=== PATIENT | male | born 1990 | race Caucasian/White ===

== ENCOUNTER 2018-07-28 19:13 | Inpatient (IN) | payer MEDICAID ==
[~2018-07-28] VITALS: Ht 175.3 cm; Wt 64.4 kg
[2018-07-28 19:17] VITALS: BP 128/60
--- NOTE | 2018-07-28 19:22 | NUR ---
PATIENT AMBULATED TO ER BED 8.
--- NOTE | 2018-07-28 19:30 | NUR ---
28/M CAME IN ED, C/O 06/20 LLQ PAIN, RADIATING TO BL LATATERAL SIDES, X1 WEEK. PT REPORTS FEELING BLOATED AND CONSTIPATED AND SLIGHT NAUSEA. PT ALSO REPORTS RECTAL/ANAL PAIN WHEN APPEMPTING TO HAVE BM. LBM THIS AM VERY LITTLE. PT DENIES FEVER, VOMITING, CP, OR SOB. LUNG SOUNDS CLEAR BL. BS ACTIVE X4, ABD SOFT ROUND TENDER TO LLQ. PT REPORTS TAKING LAXATIVE AND COLON CLEANSE WITHOUT RELIEF. DENIES MED HX.
--- NOTE | 2018-07-28 20:44 | NUR ---
ER AT BEDSIDE
[2018-07-28] MEDS ORDERED: NACL 0.9% 1,000 ML IV SCH (20:56)
--- NOTE | 2018-07-28 20:56 | NUR ---
PT RESTING IN BED, RR EVEN AND UNLABORED. VSS, PT REPORST 7/10 ABD PAIN. ALL NEEDS MET.
[2018-07-28] MEDS ORDERED: ALUMINUM HYD/MAG/SIMETHICONE 30 ML, DICYCLOMINE HCL LIQUID 20 MG, LIDOCAINE VISCOUS 2% ... PO ONE ×3 (21:00)
[2018-07-28] MEDS ORDERED: BISACODYL 5 MG TABEC PO ONE (21:00)
[2018-07-28 21:17] LABS: BASOPHILS % (AUTO) 0.4 % (0.0-2.0); EOSINOPHILS # (AUTO) 0.3 K/uL (0-0.4); HEMATOCRIT 47.3 % (36-52); HEMOGLOBIN 15.9 g/dL (12.0-18.0); LYMPHOCYTES # (AUTO) 2.5 K/uL (2.0-11.5); LYMPHOCYTES % (AUTO) 28.8 % (20.5-51.1); MEAN CORPUSCULAR HEMOGLOBIN 32 pg (27-31); MEAN CORPUSCULAR HGB CONC 34 g/dL (33-37); MEAN CORPUSCULAR VOLUME 95.1 fL (80-94); MONOCYTES # (AUTO) 0.7 K/uL (0.8-1.0); MONOCYTES % (AUTO) 7.6 % (1.7-9.3); NEUTROPHILS # (AUTO) 5.3 K/uL (1.8-7.7); NEUTROPHILS % (AUTO) 60.2 % (42.2-75.2); PLATELET COUNT (AUTO) 159 K/uL (140-450); RED BLOOD CELL COUNT(AUTO) 4.98 MIL/uL (4.20-6.10); WHITE BLOOD COUNT (AUTO) 8.8 K/uL (4.8-10.8)
[2018-07-28 21:25] LABS: ANION GAP 13.6 (8-16); CARBON DIOXIDE 30.5 mmol/L (21-32); POTASSIUM 4.1 mmol/L (3.5-5.1)
[2018-07-28 21:28] LABS: APPEARANCE,URINE CLEAR (CLEAR); BILIRUBIN,URINE NEGATIVE (NEGATIVE); BLOOD, URINE NEGATIVE (NEGATIVE); COLOR,URINE YELLOW (YELLOW); LEUKOCYTE ESTERASE ,URINE NEGATIVE (NEGATIVE); NITRITE, URINE NEGATIVE (NEGATIVE); PH,URINE 6.5 (5.0-9.0); UGLUCOSE NEGATIVE (NEGATIVE)
--- NOTE | 2018-07-28 21:30 | NUR ---
Ghulam dey in ED - 07/28/18 at 2232 by YOSHI PT REFUSING MIRALAX AT THIS TIME
[2018-07-28 21:31] LABS: ALBUMIN 4.1 g/dL (3.4-5.0); TOTAL BILIRUBIN 0.2 mg/dL (0.0-1.0)
--- NOTE | 2018-07-28 21:35 | NUR ---
DULCOLAX ONLY AVAILABLE IN SUPPOSITORY PER HOUSE SUP. ER MADE AWARE. DULCOLAX CANCELLED, MIRALAX ORDERED
[2018-07-28] MEDS: POLYETHYLENE GLYCOL 17 GM/PKT PO ONE ×2 (21:40→22:31)
--- NOTE | 2018-07-28 21:40 | NUR ---
PT REFUSING MIRALAX AT THIS TIME
--- NOTE | 2018-07-28 22:08 | NUR ---
PT TAKEN BY CT
--- NOTE | 2018-07-28 22:18 | NUR ---
PT BACK FROM CT
--- NOTE | 2018-07-28 22:37 | NUR ---
PT RESTING IN BED, RR EVEN AND UNLABORED. VSS, PT REPORTS 3/10 ABD PAIN. ALL NEEDS MET.
[2018-07-28] MEDS ORDERED: NACL 0.9% 1,000 ML IV ONE (23:25)
[2018-07-28] MEDS ORDERED: MORPHINE SULFATE 2 MG/ML SYR IVP ONE (23:25)
[2018-07-28] MEDS ORDERED: LORazepam 2 MG/ML VIAL IM/IVP PRN (23:35)
[2018-07-28] MEDS ORDERED: MORPHINE SULFATE 2 MG/ML SYR IVP PRN (23:35)
[2018-07-28] MEDS ORDERED: DOCUSATE SODIUM 100 MG GELCAP PO PRN (23:35)
[2018-07-28] MEDS ORDERED: ONDANSETRON 4 MG/2 ML VIAL IM/IVP PRN (23:35)
[2018-07-28] MEDS ORDERED: ZOLPIDEM 5 MG TAB PO PRN (23:35)
[2018-07-28] MEDS ORDERED: HYDROcodone/APAP 5/325 MG 1 TAB TAB PO PRN (23:35)
[2018-07-28] MEDS: PIPERACILLIN/TAZOBACTAM 3.375 GM in DEXTROSE 5% 50 ML IV ONE ×2 (23:36→23:55)
[2018-07-28] MEDS ORDERED: PIPERACILLIN/TAZOBACTAM 3.375 GM VIAL IV ONE (23:38)
--- NOTE | 2018-07-28 23:52 | NUR ---
DR LONGO AND DR GARCIA AT BEDSIDE. PT REPORTED CONCERN ABOUT HAVING SURGERY BECAUSE HE IS SUPPOSED TO HAVE HIS KIDS OVER THE WEEKEND. MD EXPLAINED RISKS OF LEAVING AMA, PT AGREED TO STAY IN THE HOSPITAL. SPOKE WITH DR QING MD STATED THAT BLOOD CULTURES ARE NOT NEEDED BEFORE ZOSYN ABX.
[2018-07-29 00:01] LABS: BARBITURATE, URINE NEG. ng/ml (NEG <=200); BENZODIAZEPINE, URINE NEG. ng/mL (NEG <=200); CANNABINOID, URINE NEG. ng/mL (NEG <=50); COCAINE, URINE NEG. ng/mL (NEG <=300); OPIATE, URINE NEG. ng/mL (NEG <=2000); PHENCYCLIDINE SCREEN,URINE NEG. ng/mL (NEG <=25)
[2018-07-29 00:10] VITALS: BP 117/66
--- NOTE | 2018-07-29 00:10 | NUR ---
RECEIVED REPORT FROM DAYSHIFT NURSE AT BEDSIDE FOR CONTINUITY OF CARE. PT [id number]. PT IV NOTED LAC 20G NS WIDE OPEN. NO SOB NO S/S OF DISTRESS ON RA. BED LOWERED PT AMBULATORY. PT ORIENTED TO ROOM WILL CONTINUE TO MONITOR.
[2018-07-29 00:11] LABS: MAGNESIUM 2.2 mg/dL (1.8-2.4); PHOSPHORUS 4.2 mg/dL (2.5-4.9); THYROID STIMULATING HORMONE 0.93 uIU/mL (0.34-3.74)
--- NOTE | 2018-07-29 00:11 | NUR ---
Patient will be admitted to care of DR SALVADOR. Admited to [facility]. Will go to [facility]. Belongings list completed. Report to SANAM DUMONT.
[2018-07-29] MEDS ORDERED: BISACODYL 10 MG SUPP RC SCH (01:00)
[2018-07-29] MEDS ORDERED: SIMETHICONE 40 MG/0.6 ML PO SCH (01:00)
--- NOTE | 2018-07-29 01:30 | NUR ---
PT REQUESTED SELF ADMIN OF SUPPOSITORY. PT STATED SUPPOSITORY FELL OUT. SO I GAVE HIM ANOTHER ONE AND INSTRUCTED FOR HIM TO ADMIN IN BED.
[2018-07-29] MEDS: DEXT 5% / NACL 0.45% 1,000 ML IV SCH ×2 (02:00→10:30)
[2018-07-29 04:00] VITALS: BP 99/47
[2018-07-29] MEDS ORDERED: PIPERACILLIN/TAZOBACTAM 3.375 GM VIAL IV ONE (05:05)
[2018-07-29] MEDS: PIPER/TAZO 3.375GM/D5W PREMIX 50 ML IV SCH ×4 (05:11→23:39)
[2018-07-29 06:19] LABS: BASOPHILS % (AUTO) 0.4 % (0.0-2.0); EOSINOPHILS # (AUTO) 0.3 K/uL (0-0.4); EOSINOPHILS % (AUTO) 3.8 % (0.0-4.0); HEMATOCRIT 45.8 % (36-52); HEMOGLOBIN 15.2 g/dL (12.0-18.0); LYMPHOCYTES # (AUTO) 2.5 K/uL (2.0-11.5); LYMPHOCYTES % (AUTO) 33.5 % (20.5-51.1); MEAN CORPUSCULAR HEMOGLOBIN 32 pg (27-31); MEAN CORPUSCULAR HGB CONC 33 g/dL (33-37); MEAN CORPUSCULAR VOLUME 95.6 fL (80-94); MONOCYTES # (AUTO) 0.6 K/uL (0.8-1.0); MONOCYTES % (AUTO) 8.7 % (1.7-9.3); NEUTROPHILS % (AUTO) 53.6 % (42.2-75.2); PLATELET COUNT (AUTO) 144 K/uL (140-450); RED BLOOD CELL COUNT(AUTO) 4.79 MIL/uL (4.20-6.10); RED CELL DISTRIBUTION WIDTH 12.8 % (11.6-13.7); WHITE BLOOD COUNT (AUTO) 7.4 K/uL (4.8-10.8)
[2018-07-29] MEDS ORDERED: SODIUM PHOSPHATE 118 ML ENEM RC SCH ×2 (06:50→18:30)
[2018-07-29 06:56] LABS: CHOL/HDL RATIO 2.8 (1-4.5)
--- NOTE | 2018-07-29 07:27 | NUR ---
ENDORSED REPORT TO DAYSHIFT NURSE AT BEDSIDE FOR CONTINUITY OF CARE.
--- NOTE | 2018-07-29 07:36 | NUR ---
RECEIVED PT FROM TANK WAGON DRIVER NURSESANAM, PT IS AWAKE AND ON THE BEDSIDE, STANDING WITH DANICA SANTANA ON THE BEDSIDE, FIXING THE PT'S BED, NO SOB NOTED AND PT DENIES PAIN AT THIS TIME., IV LINE ON THE LEFT AC G.20 NOTED WITH D5 1/2 NS INFUSING AT 80ML/HR, INTACT. NO SIGN OF DISTRESS NOTED AND WILL CONTINUE TO MONITOR PT.
[2018-07-29 08:00] VITALS: BP 110/58
--- NOTE | 2018-07-29 08:10 | NUR ---
DR. BERMUDEZ CAME TO THE PT'S ROOM AND INFORMED PT OF THE SURGERY THAT WILL BED ONE TO THE PT TODAY, PT WILL HAVE A EXPLORATORY LAPAROTOMY OF THE APPENDIX AND PT VERBALIZED UNDERSTANDING TO THE DOCTOR, WITH OR NURSES, BERNARD ON THEM BEDSIDE WITH RN, GUILLERMINA.
--- NOTE | 2018-07-29 08:10 | NUR ---
PATIENT HAS BEEN SCREENED AND CATEGORIZED LOW NUTRITION RISK. PATIENT WILL BE SEEN WITHIN 7 DAYS OF ADMISSION. 08/04/[address]
--- NOTE | 2018-07-29 08:15 | NUR ---
PT SIGNED THE CONSENT FOR THE SURGERY OF EXPLORATORY LAPAROSCOPIC APPENDECTOMY THAT WILL BE DONE BY DR. BERMUDEZ, WITNESSED BY RN, GUILLERMINA. CONSENT ATTACHED TO CHART.
--- NOTE | 2018-07-29 08:18 | NUR ---
PT IS OFF THE UNIT AND WAS TAKEN BY OR NURSE, CRISTA FOR LAP APPENDECTOMY. PT IS STABLE AT THIS TIME.
[2018-07-29] MEDS: BUPIVACAINE-MPF/EPI 0.25% 30 ML VIAL INJ ONE ×2 (08:23→09:15)
[2018-07-29] MEDS ORDERED: KETOROLAC 30 MG/ML VIAL ONE (08:27)
[2018-07-29] MEDS ORDERED: ONDANSETRON 4 MG/2 ML VIAL ONE (08:27)
[2018-07-29] MEDS ORDERED: SUCCINYLCHOLINE CHLORIDE 200 MG/10 ML VIAL IVP ONE (08:27)
[2018-07-29] MEDS ORDERED: ROCURONIUM 50 MG/5 ML VIAL IV ONE (08:27)
[2018-07-29] MEDS ORDERED: DEXAMETHASONE 4 MG/ML VIAL ONE (08:27)
[2018-07-29] MEDS ORDERED: GLYCOPYRROLATE 0.2 MG/ML VIAL ONE (08:27)
[2018-07-29] MEDS ORDERED: PROPOFOL 200 MG/20 ML VIAL IV ONE (08:27)
[2018-07-29] MEDS ORDERED: ePHEDrine 50 MG/ML VIAL ONE (08:27)
[2018-07-29] MEDS ORDERED: NEOSTIGMINE 1:1000 10 MG/10 ML VIAL ONE (08:27)
[2018-07-29] MEDS ORDERED: DESFLURANE 240 ML BTL INH ONE (08:27)
[2018-07-29] MEDS ORDERED: HYDROmorphone PFS 2 MG/ML SYR ONE (08:30)
[2018-07-29] MEDS ORDERED: fentaNYL 0.05 MG/ML VIAL ONE (08:30)
[2018-07-29] MEDS ORDERED: HYDROmorphone 1 MG/ML AMP IVP PRN (08:55)
[2018-07-29] MEDS ORDERED: ONDANSETRON 4 MG/2 ML VIAL IVP PRN (08:55)
[2018-07-29] MEDS: LACTULOSE 20 GM/30 ML UDC PO SCH ×3 (09:00→17:14)
[2018-07-29] MEDS: SENNA 8.6 MG TAB PO SCH ×2 (09:00→21:21)
--- NOTE | 2018-07-29 10:20 | NUR ---
PT IS BACK TO ROOM FROM LAP APPENDECTOMY, V/S TAKEN AND IS TABLE AND WITHIN NORMAL LIMITS. WILL CONTINUE TO MONITOR PT.
--- NOTE | 2018-07-29 10:30 | NUR ---
PT VERBALIZED A PAIN RATE OF 8/10 AND ASKED FOR A PAIN MEDICATION. WILL MEDICATE PT.
--- NOTE | 2018-07-29 10:37 | NUR ---
CAME TO PT'S ROOM TO GIVE THE PAIN MEDICATION WHICH DR. RUIZ AGREED TO BE GIVEN, MORPHINE 1MG, BUT PT VERBALIZED AT THIS TIME THAT HE WANTED TO WAIT A LITTLE LATER TO RECEIVED THE PAIN MEDICATION, ACKNOWLEDGED AND WILL INFORM THE MD.
--- NOTE | 2018-07-29 11:20 | NUR ---
DR. RUIZ SPOKE TO THE PT, PT VERBALIZING FEELING OF ANXIETY AND DR. RUIZ IS EXPLAINING AND GIVING TEACHINGS TO PT REGARDING ELIMINATING ANXIETY AND GETTING CALM FROM HIS POST SURGERY AND PT VERBALIZED UNDERSTANDING. WILL CONTINUE TO MONITOR PT.
--- NOTE | 2018-07-29 11:49 | NUR ---
PT VERBALIZED THAT HE FEELS NAUSEATED AND ASKED FOR A MEDICATION FOR NAUSEA,,ZOFRAN WAS GIVEN AND PT TOLERATED IT. WILL CONTINUE TO MONITOR PT.
[2018-07-29] MEDS ORDERED: LORazepam 2 MG/ML VIAL IVP SCH (12:00)
--- NOTE | 2018-07-29 13:44 | NUR ---
PT VERBALIZED A PAIN RATE OF 8/10 AND ASKED FOR A PAIN MEDICATION, MORPHINE WAS GIVEN IV PUSH AND PT TOLERATED IT. WILL REASSESS PAIN IN AN HOUR.
--- NOTE | 2018-07-29 14:44 | NUR ---
PT IS AWAKE AND WAS ASKED FOR THE PAIN LEVEL AT THIS TIME AND PT VERBALIZED A PAIN RATE 0F 7/ 10 AND SAID THAT HE DOES NOT WANT NORCO. ACKNOWLEDGED AND WILL INFORM THE MD.
[2018-07-29 16:00] VITALS: BP 117/66
[2018-07-29] MEDS ORDERED: KETOROLAC 15 MG/ML VIAL IVP PRN (16:00)
[2018-07-29] MEDS ORDERED: KETOROLAC 30 MG/ML VIAL IVP SCH (16:30)
--- NOTE | 2018-07-29 16:50 | NUR ---
PT IS AWAKE AND ASSISTED TO STAND UP AND USED THE URINAL, MOTHER ON THE BEDSIDE. PT VERBALIZED THAT HE IS NOT IN PAIN ANYMORE AND HE DOES NOT NEED ANY PAIN MEDICATION AT THIS TIME.
--- NOTE | 2018-07-29 17:24 | NUR ---
PT IS AWAKE AND FAMILY ON THE BEDSIDE, MEDICATIONS GIVEN, ORAL AND IVPB. PT TOLERATED IT AND WILL CONTINUE TO MONITOR PT.
--- NOTE | 2018-07-29 17:28 | NUR ---
X-RAY OF THE ABDOMEN UPRIGHT AND FLAT IS BEING DONE TO PT NOW.
--- NOTE | 2018-07-29 18:48 | NUR ---
PT IS AWAKE AND FLEET ENEMA WAS ADMINISTERED TO PT, AND PT TOLERATED IT.
--- NOTE | 2018-07-29 19:35 | NUR ---
ENDORSED PT TO ESCROW SECRETARY NURSE, SUMMER FOR CONTINUITY OF CARE, PT IS STABLE AT THIS TIME.
--- NOTE | 2018-07-29 19:35 | NUR ---
RECEIVED BEDSIDE REPORT FROM JULIA SARMIENTO. PT IN BED, RA, FAMILY AT BEDSIDE, IV IN LEFT AC INFUSING D5 AND 1/2 NS AT 80 ML/HR. PATIENT REQUEST ENEMA TO AID WITH BOWEL MOVEMENT, ABDOMEN IS SOFT, 3 INCISION SITES NOTED, BANDAGES ARE CLEAN AND INTACT. WILL GIVE SCHEDULED MEDICATIONS. EXPLAINED PLAN OF CARE, WILL CONTINUE TO MONITOR. CALL LIGHT WITHIN REACH.
[2018-07-29] MEDS ORDERED: SIMETHICONE 80 MG TAB.CHEW PO SCH (20:15)
[2018-07-29] MEDS ORDERED: MINERAL OIL 135 ML ENEM RC SCH (20:15)
[2018-07-29] MEDS: NACL 0.9% 1,000 ML IV SCH (20:30)
[2018-07-29] MEDS: ACETAMINOPHEN 325 MG TAB PO PRN ×2 (21:21→21:29)
--- NOTE | 2018-07-29 21:29 | NUR ---
PATIENT C/O PAIN 12/18 WILL MEDICATE ACCORDING TO MD ORDER.
--- NOTE | 2018-07-29 21:30 | NUR ---
PATIENT REFUSED MINERAL ENEMA, PT STATED " I DONT WANT IT ANYMORE". WILL CONTINUE TO MONITOR.
--- NOTE | 2018-07-29 22:26 | NUR ---
PATIENT CONTINUES TO C/O PAIN NOW 03/20 WILL MEDICATE ACCORDING TO MD ORDER.
--- NOTE | 2018-07-29 23:13 | NUR ---
ENDORSED PATIENT TO FINANCIAL SERVICES ASSOCIATE NURSE GRACY TO CONTINUE CARE. WILL CONTINUE TO MONITOR.
--- NOTE | 2018-07-29 23:14 | NUR ---
RECEIVED BEDSIDE REPORT. PT A&O X4. PT ON RA NO SIGNS OF SOB. PT WITH . IV ON L AC INFUSING NS AT 80ML/H. PT S/P LAP JULIANNE WITH 3 INCISIONS. DRESSING ARE CLEAN DRY AND INTACT. PT COMPLAINS OF ABD PAIN NURSE JUST ADMINISTERED PAIN MEDICATION WILL CONTINUE TO MONITOR. ALL SAFETY MEASURES IN PLACE. CALL LIGHT WITHIN REACH.
--- NOTE | 2018-07-29 23:39 | NUR ---
DUE MEDICATION GIVEN. PT TOLERATED WELL. VITAL SIGNS ARE WITHIN NORMAL LIMITS. CALL LIGHT WITHIN REACH.
[2018-07-30] VITALS: BP 122/62
[2018-07-30] MEDS ORDERED: INFLUENZA VIRUS VACCINE QUAD 0.5 ML SYR IMVAC PRN (00:15)
[2018-07-30] MEDS: PIPER/TAZO 3.375GM/D5W PREMIX 50 ML IV SCH ×2 (05:01→11:58)
[2018-07-30] MEDS ORDERED: SIMETHICONE 80 MG TAB.CHEW PO PRN ×2 (05:55→08:05)
[2018-07-30 06:35] LABS: BASOPHILS % (AUTO) 0.3 % (0.0-2.0); EOSINOPHILS # (AUTO) 0.1 K/uL (0-0.4); EOSINOPHILS % (AUTO) 0.6 % (0.0-4.0); HEMATOCRIT 42.5 % (36-52); HEMOGLOBIN 14.1 g/dL (12.0-18.0); LYMPHOCYTES # (AUTO) 2.3 K/uL (2.0-11.5); LYMPHOCYTES % (AUTO) 21.6 % (20.5-51.1); MEAN CORPUSCULAR HEMOGLOBIN 32 pg (27-31); MEAN CORPUSCULAR HGB CONC 33 g/dL (33-37); MONOCYTES # (AUTO) 0.9 K/uL (0.8-1.0); MONOCYTES % (AUTO) 8.5 % (1.7-9.3); NEUTROPHILS # (AUTO) 7.3 K/uL (1.8-7.7); PLATELET COUNT (AUTO) 141 K/uL (140-450); RED BLOOD CELL COUNT(AUTO) 4.43 MIL/uL (4.20-6.10); RED CELL DISTRIBUTION WIDTH 12.8 % (11.6-13.7); WHITE BLOOD COUNT (AUTO) 10.6 K/uL (4.8-10.8)
[2018-07-30 06:54] LABS: ANION GAP 9.2 (8-16); CARBON DIOXIDE 27.3 mmol/L (21-32); CREATININE 1.1 mg/dL (0.7-1.3); POTASSIUM 3.5 mmol/L (3.5-5.1)
[2018-07-30 06:59] LABS: PHOSPHORUS 4.5 mg/dL (2.5-4.9)
--- NOTE | 2018-07-30 07:18 | NUR ---
ASSUMED CONTINUITY OF CARE. NO SIGNS AND SYMPTOMS OF ACUTE DISTRESS NOTED. INITIAL ASSESSMENT DONE. KEEP COMFORTABLE ON BED. EXPLAINED DIAGNOSIS, PLAN OF CARE, POST-OP CARE, INCISION CARE, PAIN MANAGEMENT TEACHING, USE OF CALL LIGHT/BED/TV/BATHROOM. VERBALIZED UNDERSTANDING. CALL LIGHT WITHIN REACH.
--- NOTE | 2018-07-30 07:18 | NUR ---
ENDORSED PT TO ELVIS VIA SBAR. PT STABLE CONDITION.
[2018-07-30 08:00] VITALS: BP 106/63
[2018-07-30] MEDS ORDERED: SENN-89 PO (08:11)
[2018-07-30] MEDS ORDERED: METO10TA98 PO (08:11)
[2018-07-30] MEDS ORDERED: ACET-9525 PO (08:11)
[2018-07-30] MEDS ORDERED: SIME80CT27 PO (08:11)
[2018-07-30 08:16] LABS: T4 (THYROXINE) 6.4 ug/dL (4.5-12.0)
[2018-07-30] MEDS: NACL 0.9% 1,000 ML IV SCH (09:00)
[2018-07-30] MEDS: LACTULOSE 20 GM/30 ML UDC PO SCH ×2 (09:08→13:00)
[2018-07-30] MEDS: SENNA 8.6 MG TAB PO SCH (09:08)
--- NOTE | 2018-07-30 09:08 | NUR ---
EXPLAINED ABOUT MD ORDER OF FLU VACCINE. PT. VERBALIZED UNDERSTANDING BUT REFUSED FLU VACCINE. INFORMED CHARGE NURSE DANIEL HURT.
--- NOTE | 2018-07-30 10:30 | NUR ---
WENT TO BATHROOM WITHOUT ASSISTANCE. TOLERATED WELL. NO C/O PAIN.
[2018-07-30] MEDS ORDERED: METOCLOPRAMIDE 10 MG TAB PO SCH (11:30)
--- NOTE | 2018-07-30 11:45 | NUR ---
AMBULATES ON THE HALLWAY WITHOUT ASSISTANCE. TOLERATED WELL. HAD STEADY GAIT AND BALANCE. NO C/O PAIN. NO SOB, NOTED.
[2018-07-30 12:00] VITALS: BP 114/72
--- NOTE | 2018-07-30 13:35 | NUR ---
D/C HOME VIA WHEELCHAIR ACCOMPANIED BY FAMILY MEMBERS. AWAKE, ALERT, AND ORIENTED X4. SPEECH CLEAR. NO C/O PAIN. NO SOB, NOTED. IN STABLE CONDITION. INFORMED CHARGE NURSE DANIEL HURT.
== END 2018-07-30 13:35 | disposition home or self-care (01) | DRG 234 ==
LOC: MED 19:13 → MTU 23:33
PROVIDERS: ADMIT General Practice; ATTEND General Practice
PROC: 0DTJ4ZZ Resection of Appendix, Percutaneous Endoscopic Approach (ICD-10-PCS; principal; 2018-07-29 08:00)
PROC: 3E02340 Introduction of Influenza Vaccine into Muscle, Percutaneous Approach (ICD-10-PCS; 2018-07-30)
DX: K35.890 Other acute appendicitis without perforation or gangrene (principal); F32.9 Major depressive disorder, single episode, unspecified; K59.00 Constipation, unspecified; F41.9 Anxiety disorder, unspecified; Z56.0 Unemployment, unspecified; Z23 Encounter for immunization
CPT/HCPCS: 36415; 71045; 74018; 74021; 80048; 80053; 80305; 81003; 83036; 83690; 83735; 83880; 84100; 84134; 84436; 84443; 85025; 85610; 85730; 86886; 86900; 86901; 87081; 90658; 93005; 96365; 99285; J0330; J1100; J1170; J1885; J2060; J2270; J2405; J2543; J2704; J2710; J3010; J3490; J7030; J7060; J8597; Q0092; Q9967

== ENCOUNTER 2018-12-01 18:41 | Emergency (ER) | payer MEDICAID, OTHER ==
[~2018-12-01] VITALS: Ht 175.3 cm; Wt 65.8 kg
[~2018-12-01 18:41] MED LIST: ACET-9525 PO; METO10TA98 PO; SENN-74 PO; SIME80CT27 PO
[2018-12-01 19:10] VITALS: BP 129/65
--- NOTE | 2018-12-01 19:42 | NUR ---
PATIENT LEFT WITHOUT BEING SEEN BY DR. Shields. NO FURTHER CARE PROVIDED FOR PATIENT.
--- NOTE | 2018-12-01 19:42 | NUR ---
PT CALLED BY BUNGHOLE BORER NO ANSWER
--- NOTE | 2018-12-01 19:53 | NUR ---
PT WAS CALLED BUT NO RESPONSE
--- NOTE | 2018-12-01 20:00 | NUR ---
Called pt but no response. Check outside surrounding areas, but no sign of pt.
[2018-12-01 20:07] LABS: APPEARANCE,URINE CLEAR (CLEAR); BILIRUBIN,URINE NEGATIVE (NEGATIVE); BLOOD, URINE 1+ (NEGATIVE); COLOR,URINE YELLOW (YELLOW); LEUKOCYTE ESTERASE ,URINE NEGATIVE (NEGATIVE); NITRITE, URINE NEGATIVE (NEGATIVE); UGLUCOSE NEGATIVE (NEGATIVE)
[2018-12-01 20:17] LABS: RBC,URINE 0-5 (RARE) /HPF (0-5); WBC,URINE 0-5 (RARE) /HPF (0-5)
== END 2018-12-01 19:42 | disposition left against medical advice (07) ==
LOC: MED 18:41
DX: R10.31 Right lower quadrant pain (principal); R11.0 Nausea; Z53.21 Procedure and treatment not carried out due to patient leaving prior to being seen by health care provider
CPT/HCPCS: 81001; 99281

== ENCOUNTER 2019-04-19 14:33 | Emergency (ER) | payer OTHER ==
[~2019-04-19] VITALS: Ht 177.8 cm; Wt 63.0 kg
[2019-04-19 14:36] VITALS: BP 106/58
--- NOTE | 2019-04-19 14:43 | NUR ---
Ghulam dey in [facility] - 04/19/19 at 1446 by [email or web address] PT AMB TO BED 4 WITH STEADY GAIT
--- NOTE | 2019-04-19 14:46 | NUR ---
[facility] EMT COMPLETING EKG IN TRIAGE ROOM
--- NOTE | 2019-04-19 15:22 | NUR ---
PT AMBULATED TO BED 10.
[2019-04-19] MEDS ORDERED: NACL 0.9% 1,000 ML IV ONE (15:41)
[2019-04-19] MEDS ORDERED: NACL 0.9% 1,000 ML IV SCH (15:41)
[2019-04-19] MEDS ORDERED: KETOROLAC 30 MG/ML VIAL IVP ONE (15:45)
[2019-04-19] MEDS ORDERED: LACTULOSE 20 GM/30 ML UDC PO ONE (15:45)
[2019-04-19] MEDS ORDERED: HALOPERIDOL IM 5 MG/ML VIAL IM ONE (15:45)
[2019-04-19] MEDS ORDERED: diphenhydrAMINE 50 MG/ML VIAL IVP ONE (15:45)
--- NOTE | 2019-04-19 15:52 | NUR ---
PT PRESENTS TO ED WITH C/O LOWER ABDOMINAL PAIN AND CONSTIPATION X 4 DAYS. +NAUSEA, DENIES VOMITING OR FEVER; AFEBRILE. PT STATES PAIN IS 9/10. ERMD TO EVALUATE PT.
[2019-04-19 16:30] LABS: APPEARANCE,URINE CLEAR (CLEAR); BILIRUBIN,URINE NEGATIVE (NEGATIVE); BLOOD, URINE 1+ (NEGATIVE); COLOR,URINE YELLOW (YELLOW); LEUKOCYTE ESTERASE ,URINE NEGATIVE (NEGATIVE); NITRITE, URINE NEGATIVE (NEGATIVE); UGLUCOSE NEGATIVE (NEGATIVE)
[2019-04-19 16:37] LABS: BASOPHILS % (AUTO) 0.5 % (0.0-2.0); EOSINOPHILS # (AUTO) 0.3 K/uL (0-0.4); EOSINOPHILS % (AUTO) 5.6 % (0.0-4.0); HEMATOCRIT 49.9 % (36-52); HEMOGLOBIN 16.7 g/dL (12.0-18.0); LYMPHOCYTES # (AUTO) 1.9 K/uL (2.0-11.5); LYMPHOCYTES % (AUTO) 34.8 % (20.5-51.1); MEAN CORPUSCULAR HEMOGLOBIN 33 pg (27-31); MEAN CORPUSCULAR HGB CONC 34 g/dL (33-37); MONOCYTES # (AUTO) 0.6 K/uL (0.8-1.0); NEUTROPHILS # (AUTO) 2.7 K/uL (1.8-7.7); NEUTROPHILS % (AUTO) 48.1 % (42.2-75.2); PLATELET COUNT (AUTO) 139 K/uL (140-450); RED BLOOD CELL COUNT(AUTO) 5.14 MIL/uL (4.20-6.10); RED CELL DISTRIBUTION WIDTH 13.4 % (11.6-13.7); WHITE BLOOD COUNT (AUTO) 5.6 K/uL (4.8-10.8)
[2019-04-19 16:37] LABS: BARBITURATE, URINE NEG. ng/ml (NEG <=200); BENZODIAZEPINE, URINE NEG. ng/mL (NEG <=200); CANNABINOID, URINE NEG. ng/mL (NEG <=50); COCAINE, URINE NEG. ng/mL (NEG <=300); OPIATE, URINE NEG. ng/mL (NEG <=2000); PHENCYCLIDINE SCREEN,URINE NEG. ng/mL (NEG <=25)
[2019-04-19 16:49] LABS: ANION GAP 13.6 (8-16); CARBON DIOXIDE 27.1 mmol/L (21-32); CHLORIDE 102 mmol/L (98-107); GFR ARICAN-AMERICAN 115 mL/min (>90); GLUCOSE 77 mg/dL (74-106); POTASSIUM 3.7 mmol/L (3.5-5.1); SODIUM SERUM 139 mmol/L (136-145); UREA NITROGEN, BLOOD 17 mg/dL (7-18)
[2019-04-19 16:51] LABS: PROTHROMBIN TIME 10.3 secs (10.8-13.4)
[2019-04-19 17:03] LABS: ALBUMIN 4.2 g/dL (3.4-5.0); AMYLASE 102 U/L (25-115); ASPARTATE AMINOTRANSFERASE 22 U/L (15-37); LIPASE 195 U/L (73-393); TOTAL BILIRUBIN 0.6 mg/dL (0.0-1.0)
[2019-04-19 17:03] LABS: WBC,URINE 0-5 /HPF (0-5)
[2019-04-19 17:20] LABS: URIC ACID 4.9 mg/dL (2.6-7.2)
[2019-04-19 17:31] LABS: ACETONE, SERUM NEGATIVE (NEGATIVE)
[2019-04-19 18:18] VITALS: BP 109/60
--- NOTE | 2019-04-19 18:19 | NUR ---
IV removed, catheter intact and site benign. Applied folded 4x4 gauze and tape to stop bleeding.
--- NOTE | 2019-04-19 18:20 | NUR ---
Patient discharged with v/s stable. Written and verbal after care instructions given and explained. Patient alert, oriented and verbalized understanding of instructions. Ambulatory with steady gait. All questions addressed prior to discharge. ID band removed. Patient advised to follow up with PMD. Rx of Bentyl and Colace given. Patient educated on indication of medication including possible reaction and side effects. Opportunity to ask questions provided and answered.
== END 2019-04-19 18:20 | disposition home or self-care (01) ==
LOC: MED 14:33
DX: K58.9 Irritable bowel syndrome, unspecified (principal); E86.0 Dehydration; F41.9 Anxiety disorder, unspecified; F32.9 Major depressive disorder, single episode, unspecified; F12.10 Cannabis abuse, uncomplicated; Z90.49 Acquired absence of other specified parts of digestive tract
CPT/HCPCS: 36415; 74176; 80053; 80305; 81001; 82009; 82150; 83605; 83690; 83735; 84550; 85025; 85610; 93005; 96361; 96372; 96374; 96375; 99284; J1200; J1630; J1885; J7030

== ENCOUNTER 2019-12-12 10:44 | Emergency (ER) | payer OTHER ==
--- NOTE | 2019-12-12 11:20 | NUR ---
no answer in ER lobby
--- NOTE | 2019-12-12 11:30 | NUR ---
NO ANSWER IN LOBBY.
--- NOTE | 2019-12-12 11:40 | NUR ---
PATIENT LEFT WITHOUT BEING SEEN BY DR. HOPKINS. NO FURTHER CARE PROVIDED FOR PATIENT.
== END 2019-12-12 11:50 | disposition left against medical advice (07) ==
LOC: MED 10:44
DX: R07.2 Precordial pain (principal); Z53.21 Procedure and treatment not carried out due to patient leaving prior to being seen by health care provider

== ENCOUNTER 2020-09-02 17:40 | Emergency (ER) | payer OTHER ==
[~2020-09-02] VITALS: Ht 175.3 cm; Wt 77.1 kg
[~2020-09-02 17:40] MED LIST changes: +METO10TA11 PO; -METO10TA98 PO
[2020-09-02 17:55] VITALS: BP 142/76
--- NOTE | 2020-09-02 17:58 | NUR ---
C/O CABRERA 9/10 X 10DAYS, N/VX 2 DAYS. MED HX: DENIES
[2020-09-02 18:50] VITALS: BP 142/76
--- NOTE | 2020-09-02 18:50 | NUR ---
Patient discharged with v/s stable. Written and verbal after care instructions given and explained. Patient alert, oriented and verbalized understanding of instructions. Ambulatory with steady gait. All questions addressed prior to discharge. ID band removed. Patient advised to follow up with PMD. Rx of IBUPROFEN, SUMATRIPTAN & ZOFRAN given. Patient educated on indication of medication including possible reaction and side effects. Opportunity to ask questions provided and answered.
== END 2020-09-02 18:50 | disposition home or self-care (01) ==
LOC: MED 17:40
DX: R51.9 Headache, unspecified (principal); R03.0 Elevated blood-pressure reading, without diagnosis of hypertension; R11.0 Nausea; Z79.899 Other long term (current) drug therapy
CPT/HCPCS: 99283

== ENCOUNTER 2020-12-09 00:45 | Emergency (ER) | payer OTHER ==
[~2020-12-09] VITALS: Ht 177.8 cm; Wt 78.5 kg
[2020-12-09 00:55] VITALS: BP 127/81
[2020-12-09 01:58] LABS: BASOPHILS % (AUTO) 0.5 % (0.0-2.0); EOSINOPHILS # (AUTO) 0.4 K/uL (0-0.4); EOSINOPHILS % (AUTO) 6.1 % (0.0-4.0); HEMATOCRIT 46.9 % (36-52); HEMOGLOBIN 15.9 g/dL (12.0-18.0); LYMPHOCYTES # (AUTO) 2.9 K/uL (2.0-11.5); LYMPHOCYTES % (AUTO) 41.6 % (20.5-51.1); MEAN CORPUSCULAR HEMOGLOBIN 32 pg (27-31); MEAN CORPUSCULAR HGB CONC 34 g/dL (33-37); MEAN CORPUSCULAR VOLUME 93.3 fL (80-94); MONOCYTES # (AUTO) 0.7 K/uL (0.8-1.0); MONOCYTES % (AUTO) 9.3 % (1.7-9.3); NEUTROPHILS % (AUTO) 42.5 % (42.2-75.2); PLATELET COUNT (AUTO) 146 K/uL (140-450); RED BLOOD CELL COUNT(AUTO) 5.03 MIL/uL (4.20-6.10); RED CELL DISTRIBUTION WIDTH 13.4 % (11.6-13.7)
[2020-12-09 02:16] LABS: ALBUMIN 4.2 g/dL (3.4-5.0); ANION GAP 12.1 (8-16); CARBON DIOXIDE 27.8 mmol/L (21-32); CREATININE 1.1 mg/dL (0.6-1.3); POTASSIUM 3.9 mmol/L (3.5-5.1); TOTAL BILIRUBIN 0.2 mg/dL (0.0-1.0)
[2020-12-09 03:20] VITALS: BP 118/64
== END 2020-12-09 03:20 | disposition home or self-care (01) ==
LOC: MED 00:45
DX: R07.9 Chest pain, unspecified (principal); F41.9 Anxiety disorder, unspecified; Z79.899 Other long term (current) drug therapy
CPT/HCPCS: 36415; 71045; 80053; 84484; 85025; 85379; 93005; 99285

== ENCOUNTER 2021-07-29 22:20 | Emergency (ER) | payer OTHER ==
[~2021-07-29] VITALS: Ht 177.8 cm; Wt 79.4 kg
[2021-07-29 22:33] VITALS: BP 142/72
--- NOTE | 2021-07-29 22:36 | NUR ---
TO LOBBY A/W BED AMBULATORY
[2021-07-30] MEDS ORDERED: IBUP-2213 PO (01:39)
[2021-07-30] MEDS ORDERED: TRAM50TA3 PO (01:40)
[2021-07-30 02:00] VITALS: BP 135/70
== END 2021-07-30 01:54 | disposition home or self-care (01) ==
LOC: MED 22:20
DX: S52.124A Nondisplaced fracture of head of right radius, initial encounter for closed fracture (principal); W19.XXXA Unspecified fall, initial encounter; Y93.89 Activity, other specified; Y92.89 Other specified places as the place of occurrence of the external cause; Y99.8 Other external cause status
CPT/HCPCS: 73090; 73130; 99284; Q0092

== ENCOUNTER 2024-06-28 16:02 | Emergency (ER) | payer OTHER ==
[~2024-06-28] VITALS: Ht 175.3 cm; Wt 64.0 kg
[~2024-06-28 16:02] MED LIST changes: +IBUP-2213 PO; +TRAM50TA3 PO
[2024-06-28 16:27] VITALS: BP 113/71; PULSE 71; RESP 18; TEMP 97.9; O2SAT 99
[2024-06-28] MEDS ORDERED: MAGN296S70 PO (17:21)
[2024-06-28] MEDS ORDERED: BISA-213 RC (17:21)
== END 2024-06-28 17:32 | disposition home or self-care (01) ==
LOC: MED 16:02
DX: K59.00 Constipation, unspecified (principal); Z79.899 Other long term (current) drug therapy
CPT/HCPCS: 74022; 99283